=== PATIENT | male | born 1975 | race Two or more races ===

== ENCOUNTER 2018-07-30 12:31 | Emergency (ER) | payer MEDICAID ==
[~2018-07-30] VITALS: Ht 167.6 cm; Wt 88.9 kg
[2018-07-30 12:49] VITALS: Ht 167.6 cm; Wt 88.9 kg
[2018-07-30 14:37] VITALS: BP 127/71
== END 2018-07-30 14:37 | disposition home or self-care (01) ==
LOC: ED 12:31
DX: T15.11XA Foreign body in conjunctival sac, right eye, initial encounter (principal); W45.8XXA Other foreign body or object entering through skin, initial encounter; Y93.89 Activity, other specified; Y92.89 Other specified places as the place of occurrence of the external cause; Y99.8 Other external cause status